=== PATIENT | male | born 1970 | race Caucasian/White ===

== ENCOUNTER 2018-06-27 10:20 | Observation (INO) ==
--- NOTE | 2018-06-27 10:45 | ED ---
HPI General Chief Complaint: Abdominal Pain Stated Complaint: kidney stones Time Seen by Provider: 06/27/18 10:40 Source: patient and EMS Mode of arrival: EMS Limitations: no limitations History of Present Illness HPI narrative: 47-year-old male patient with history of kidney stones presents to the ER today brought in by EMS because of pain in his left flank area that started at 6:45 AM. He states that he was getting nauseous but denies any vomiting, 9 out of 10 pain, and decided to call EMS. He denies any fevers, vomiting, or other symptoms. Modifying Factors: None Associated Signs & Symptoms: Abdominal pain and flank pain Risk Factors: None Related Data Home Medications Medication Instructions Recorded Confirmed bupropion HCl [Wellbutrin SR] 150 mg PO DAILY 06/27/18 06/27/18 Allergies Allergy/AdvReac Type Severity Reaction Status Date / Time Iodinated Contrast- Oral and Allergy Severe Itching/SOB Verified 06/27/18 10:26 IV Dye [Contrast] Review of Systems ROS: all other systems reviewed are negative [facility] Medical History Medical History Kidney stones (Acute) Surgical History Surgical History No history of previous surgery (Acute) Social History Social History Substance History: No History of Abuse Smoking Status: Never smoker How Often Do You Have a Drink Containing Alcohol: 2 to 4 times a month Recent Travel in [facility] within the Last 8 Weeks: No Recent Out of Country Travel within the Last 8 Weeks: No Immunization History Tetanus Immunization: Unsure Exam Narrative Exam Narrative: GENERAL: Well-developed middle-age male patient currently in mild distress. Awake and oriented x3. SKIN: Focused skin assessment warm/dry. HEAD: Atraumatic. Normocephalic. EYES: Pupils equal and round. No scleral icterus. No injection or drainage. ENT: No nasal bleeding or discharge. Mucous membranes pink and moist. NECK: Trachea midline. No JVD. CARDIOVASCULAR: Regular rate and rhythm. No murmur appreciated. RESPIRATORY: No accessory muscle use. Clear to auscultation. Breath sounds equal bilaterally. GASTROINTESTINAL: Abdomen soft, non-tender, nondistended. Hepatic and splenic margins not palpable. MUSCULOSKELETAL: No obvious deformities. No clubbing. No cyanosis. No edema. NEUROLOGICAL: Awake and alert. No obvious cranial nerve deficits. Motor grossly within normal limits. Normal speech. PSYCHIATRIC: Appropriate mood and affect; insight and judgment normal. Course Initial Documented Vital Signs Temperature 97.6 F 06/27/18 10:20 Pulse Rate 60 06/27/18 10:20 Respiratory Rate 14 06/27/18 10:20 Blood Pressure 140/84 06/27/18 10:20 Pulse Oximetry 100 06/27/18 10:20 Last Documented Vital Signs Temperature 97.6 F 06/27/18 10:20 Pulse Rate 65 06/27/18 11:40 Respiratory Rate 14 06/27/18 11:40 Blood Pressure 131/76 06/27/18 11:40 Pulse Oximetry 99 06/27/18 11:40 Medical Decision Making MDM Narrative Medical decision making narrative: Lab work shows blood in the urine. Patient was given symptomatic relief by EMS, and CAT scan is showing signs of left- sided hydronephrosis, with now obvious signs of a stone. Patient pees out the stone in the ER. However, his lipase is also 1900, and he may have some underlying acute pancreatitis as well interestingly. At this point, I have discussed further treatment with the patient and he agrees to stay, plan would be to admit the patient for further treatment of pancreatitis. Case is discussed with Dr. Shaw for admission. Medical Screen Exam Complete: Yes Emergency Medical Condition: Yes Differential Diagnosis Differential Diagnosis: Gastroenteritis versus renal colic versus pancreatitis versus other acute intra-abdominal processes Lab Data Lab results reviewed: Yes I reviewed the patient's lab results. Result diagrams: 06/27/18 11:20 06/27/18 11:20 Lab Results 06/27/18 06/27/18 06/27/18 Range/Units 11:20 11:20 11:25 CBC w Diff Auto diff final WBC 15.0 H (4.0-11.0) th/mm3 RBC 5.14 (4.50-5.90) mil/mm3 Hgb 16.1 (13.0-17.0) gm/dL Hct 46.1 (39.0-51.0) % MCV 89.8 (80.0-100.0) fL MCH 31.4 (27.0-34.0) pg MCHC 34.9 (32.0-36.0) % RDW 11.4 L (11.6-17.2) % Plt Count 199 (150-450) th/mm3 MPV 9.1 (7.0-11.0) fL Neut % (Auto) 85.2 H (16.0-70.0) % Lymph % (Auto) 6.2 L (9.0-44.0) % [place] % (Auto) 6.5 (0.0-8.0) % Eos % (Auto) 0.4 (0.0-4.0) % Baso % (Auto) 1.7 (0.0-2.0) % Neut # (Auto) 12.7 H (1.8-7.7) th/mm3 Lymph # (Auto) 0.9 L (1.0-4.8) th/mm3 [place] # (Auto) 1.0 H (0.0-0.9) th/mm3 Eos # (Auto) 0.1 (0.0-0.4) th/mm3 Baso # (Auto) 0.3 H (0.0-0.2) th/mm3 WBC Differential . Differential Comment . Sodium 137 (136-145) meq/L Potassium 4.9 (3.5-5.1) meq/L Chloride 103 (98-107) meq/L Carbon Dioxide 27.7 (21.0-32.0) meq/L Anion Gap 6 (5-15) meq/L BUN 11 (7-18) mg/dL Creatinine 1.20 (0.60-1.30) mg/dL Estimated GFR 65 L (>89) mL/min Random Glucose 138 H (74-106) mg/dL Calcium 8.7 (8.5-10.1) mg/dL Magnesium 2.1 (1.5-2.5) mg/dL Total Bilirubin 0.4 (0.2-1.0) mg/dL AST 27 (15-37) U/L ALT 46 (12-78) U/L Alkaline Phosphatase 67 (45-117) U/L Total Protein 7.6 (6.4-8.2) g/dL Albumin 3.8 (3.4-5.0) g/dL Lipase 1912 H (73-393) U/L Ur Collection Type Clean catch Urine Color Yellow (Yellw/Straw) Urine Clarity Slightly cloudy (Clear) Urine pH 7.0 (5.0-8.5) Ur Specific [place] 1.015 (1.002-1.035) Urine Protein Negative (Neg-Trace) mg/dL Urine Glucose (UA) Negative (Negative) mg/dL Urine Ketones Negative (Negative) mg/dL Urine Occult Blood Large H (Negative) Urine Nitrate Negative (Negative) Urine Bilirubin Negative (Negative) Urine Urobilinogen 0.2 (Less than 2) mg/dL Ur Leukocyte Esterase Negative (Negative) Urine RBC 4-15 H (0-3) /hpf Micro UA Comment Culture not ind Ur Microscopic Review Microscopic reviewed Urine Culture Comments Culture not ind Urine Collection Time 1125 hours Imaging Data Attestation: I personally reviewed and interpreted this imaging study as follows : Radiologist's impression: Abdomen/Pelvis CT 06/27/18 10:40 CONCLUSION: 1. Mild left-sided hydronephrosis and hydroureter without evidence of obstructing stone. 2. Small nonobstructing bilateral renal stones. 3. Otherwise normal exam. Discharge Plan Discharge Disposition Patient Disposition: 30 Still Patient Discharge Condition Condition: Stable Discharge Details Anticipated Discharge Date: 06/27/18 Diagnosis: Pancreatitis, Renal colic on left side Physicians Team ED Provider: Anali Mancia Rxs /Orders / Referrals /Forms Prescriptions: No Action bupropion HCl [Wellbutrin SR] 150 mg Tablet Sustained-Release 12 Hr 150 mg PO DAILY RF: 0 Discharge Interventions Interventions: Vital Signs Last Done: 06/27/18 11:40 Status ED Status: With Doctor
[2018-06-27 11:29] LABS: Baso # (Auto) 0.3 th/mm3 (0.0-0.2); Baso % (Auto) 1.7 % (0.0-2.0); Eos # (Auto) 0.1 th/mm3 (0.0-0.4); Eos % (Auto) 0.4 % (0.0-4.0); Hematocrit 46.1 % (39.0-51.0); Hemoglobin 16.1 gm/dL (13.0-17.0); Lymph # (Auto) 0.9 th/mm3 (1.0-4.8); Lymph % (Auto) 6.2 % (9.0-44.0); Mean Corpuscular HGB Conc 34.9 % (32.0-36.0); Mean Corpuscular Hemoglobin 31.4 pg (27.0-34.0); Mean Corpuscular Volume 89.8 fL (80.0-100.0); Mean Platelet Volume 9.1 fL (7.0-11.0); Mono % (Auto) 6.5 % (0.0-8.0); Neut # (Auto) 12.7 th/mm3 (1.8-7.7); Neut % (Auto) 85.2 % (16.0-70.0); Platelet Count 199 th/mm3 (150-450); Red Blood Count 5.14 mil/mm3 (4.50-5.90); Red Cell Distribution Width 11.4 % (11.6-17.2)
[2018-06-27 11:37] LABS: Chloride 103 meq/L (98-107); Potassium 4.9 meq/L (3.5-5.1); Sodium 137 meq/L (136-145)
[2018-06-27 11:40] LABS: Calcium 8.7 mg/dL (8.5-10.1)
[2018-06-27 11:41] LABS: Albumin 3.8 g/dL (3.4-5.0); Anion Gap 6 meq/L (5-15); Blood Urea Nitrogen 11 mg/dL (7-18); Carbon Dioxide 27.7 meq/L (21.0-32.0); Glucose,Random 138 mg/dL (74-106); Magnesium 2.1 mg/dL (1.5-2.5)
[2018-06-27 11:44] LABS: Alanine Aminotransferase 46 U/L (12-78); Aspartate Aminotransferase 27 U/L (15-37); Glomerular Filtration Rate 65 mL/min (>89)
[2018-06-27 11:45] LABS: Total Protein 7.6 g/dL (6.4-8.2)
[2018-06-27 11:46] LABS: Lipase 1912 U/L (73-393)
[2018-06-27 11:47] LABS: Alkaline Phosphatase 67 U/L (45-117)
[2018-06-27 11:49] LABS: Bilirubin,Urine Negative (Negative); Clarity,Urine Slightly Cloudy (Clear); Color,Urine Yellow (Yellw/Straw); Glucose,Urine (UA) Negative (Negative); Leukocyte Esterase,Urine Negative (Negative); Nitrite,Urine Negative (Negative); Specific Gravity,Urine 1.015 (1.002-1.035); Urobilinogen,Urine 0.2 mg/dL (Less than 2)
[2018-06-27 11:52] LABS: Collection Time,Urine 1125 hours
--- NOTE | 2018-06-27 12:16 | CT ---
EXAM DATE: 06/27/2018 12:04 PM EST AGE/SEX: 47 years / Male INDICATIONS: Left flank pain. CLINICAL DATA: This is the patient's initial encounter. Patient reports that signs and symptoms have been present for 1 day and indicates a pain score of 0/10. MEDICAL/SURGICAL HISTORY: Renal calculi. None. RADIATION DOSE: 7.76 CTDI (mGy) COMPARISON: No prior exams available for comparison. TECHNIQUE: Multiple contiguous axial images were obtained through the abdomen. Images were obtained using multiple row detector helical technique. Using automated exposure control and adjustment of the mA and/or kV according to patient size, radiation dose was kept as low as reasonably achievable to o btain optimal diagnostic quality images. DICOM format image data is available electronically for rev iew and comparison. FINDINGS: Lower Lungs: The visualized lower lungs are clear. Liver: The liver has a homogeneous density without space-occupying lesion. There is no dilation of th e biliary tree. Spleen: Homogeneous density without enlargement. Pancreas: Unremarkable without mass or calcification. Kidneys: The left renal collecting system including proximal ureter are mildly dilated. There is no evidence of obstructing stone. A tiny nonobstructing calculus is identified in the lower pole measuri ng 1 to 2 mm. The right kidney contains a 3 to 4 mm nonobstructing stone in the upper pole. Collecting system is no rmal without evidence of hydronephrosis. There are no suspicious renal lesions. Adrenal Glands: Unremarkable. Aorta: The aorta and proximal iliac vessels are grossly unremarkable without aneurysmal dilation. Bowel/Mesentery: The bowel loops are grossly unremarkable. The cecum and sigmoid colon have a normal configuration. Abdominal Wall: Intact. Retroperitoneum: No evidence of adenopathy in the retrocrural, para-aortic, or deep pelvic regions. Bladder: Contours are smooth. Reproductive Organs: No abnormal masses or calcifications seen. Inguinal: The inguinal region is unremarkable without evidence of adenopathy. Bony Structures: Unremarkable. CONCLUSION: 1. Mild left-sided hydronephrosis and hydroureter without evidence of obstructing stone. 2. Small nonobstructing bilateral renal stones. 3. Otherwise normal exam. Electronically signed by: Tyrell Cerda MD 06/27/2018 12:15 PM EST
[2018-06-27] MEDS ORDERED: Sod Chloride 0.9% Inj 1,000 ML IV.SIG SCH (13:00)
--- NOTE | 2018-06-27 14:23 | P.HPIM ---
History of Present Illness Primary Care Physician: Jeramy Avendaño MD [facility] History of Present Illness: This patient is a 47-year-old male with a history of kidney stones. The patient also has a history of anxiety and takes Wellbutrin. The patient came in to emerge department with complaints of left-sided abdominal pain which was radiating to his back. Over the past few days the patient has had some visitors from the [place] and they went out and drink a couple bottles of wine yesterday. The patient that his symptoms started last night and continued throughout the night. The patient also some nausea however denies any vomiting. This morning the patient believed that he had another kidney stone and came into the emergency department because the stone did not pass overnight. In the ER a CT scan of the abdomen pelvis was done which showed bilateral small kidney stones as well as mild left-sided hydronephrosis. He ended up passing a kidney stone in the ER. Labs showed an elevated lipase of 1900. Given the patient's abdominal pain with radiation to his back he was started on IV fluids and I was called to evaluate the patient. Past medical history anxiety Past surgical history none Social history the patient denies any history of tobacco use, no drug use, he admits to drinking approximately 1 bottle of wine each night between him and his . Occasionally he will drink a few bottles when going out with friends. Family history noncontributory. Inpatient Certification: I certify that the inpatient services were ordered in accordance with Medicare regulations governing the order. This includes certification that hospital inpatient services are reasonable and necessary and in the case of services not specified as inpatient-only under 42 CFR 419.22(n), that they are appropriately provided as inpatient services in accordance to with the 2-midnight benchmark under 43 CFR 412.3(e) Review of Systems All other systems reviewed negative except as stated in HPI PMFSH - History History Provided By: Patient - Medical History Medical History: Medical History (Last Reviewed 06/27/18 @ 10:44 by Anali Mancia MD) Kidney stones - Surgical History Surgical History: Surgical History (Last Reviewed 06/27/18 @ 10:44 by Anali Mancia MD) No history of previous surgery - Tobacco History Smoking Status: Never smoker - Alcohol History How Often Do You Have a Drink Containing Alcohol: 2 to 4 times a month - Substance Use History Substance History: No History of Abuse - Travel History Recent Travel in the [place] Within the Last 8 Weeks: No Recent Travel Out of the Country Within the Last 8 Weeks: No - Immunization History Tetanus Immunization: Unsure Medications and Allergies Active Medications: Active Medications Sodium Chloride (Ns Inj) 1,000 mls @ 175 mls/hr IV.CONT .Q5H43M ALISE Sodium Chloride (Ns Flush) 2 ml IV.FLUSH PRN PRN PRN Reason: FLUSH AFTER USING IV ACCESS Allergies Allergy/AdvReac Type Severity Reaction Status Date / Time Iodinated Contrast- Oral and Allergy Severe Itching/SOB Verified 06/27/18 10:26 IV Dye [Contrast] Home Medications Medication Instructions Recorded Confirmed Type bupropion HCl [Wellbutrin SR] 150 mg PO DAILY 06/27/18 06/27/18 History Exam Vital signs: Vital Signs 06/27/18 10:20 06/27/18 11:40 Temperature 97.6 F Pulse Rate 60 65 Respiratory Rate 14 14 Blood Pressure 140/84 131/76 Pulse Oximetry 100 99 Intake & Output 06/26/18 06/27/18 06/27/18 18:59 06:59 18:59 Weight 83.915 kg Narrative: General patient complains of abdominal pain that radiates to the left side of his back. HEENT extraocular movements are intact, clear oropharyngeal mucosa, no JVD Cardiovascular S1-S2 audible, RRR, no murmurs rubs or gallops Respiratory clear to auscultation bilaterally Abdomen soft, nontender, nondistended, normal bowel sounds Extremities no edema 2+ distal pulses in bilateral upper and lower extremities Neuro cranial nerves II through XII intact Results - Labs CBC & Chem 7: 06/27/18 11:20 06/27/18 11:20 Labs: Short CBC 06/27/18 Range/Units 11:20 WBC 15.0 H (4.0-11.0) th/mm3 Hgb 16.1 (13.0-17.0) gm/dL Hct 46.1 (39.0-51.0) % Plt Count 199 (150-450) th/mm3 BMP 06/27/18 11:20 Sodium 137 Potassium 4.9 Chloride 103 Carbon Dioxide 27.7 BUN 11 Creatinine 1.20 Calcium 8.7 Liver Function 06/27/18 Range/Units 11:20 Total Bilirubin 0.4 (0.2-1.0) mg/dL AST 27 (15-37) U/L ALT 46 (12-78) U/L Alkaline Phosphatase 67 (45-117) U/L Albumin 3.8 (3.4-5.0) g/dL Urine 06/27/18 Range/Units 11:25 Urine Color Yellow (Yellw/Straw) Urine Clarity Slightly cloudy (Clear) Urine pH 7.0 (5.0-8.5) Ur Specific [place] 1.015 (1.002-1.035) Urine Protein Negative (Neg-Trace) mg/dL Urine Glucose (UA) Negative (Negative) mg/dL - Imaging Impressions Abdomen/Pelvis CT 06/27/18 10:40 CONCLUSION: 1. Mild left-sided hydronephrosis and hydroureter without evidence of obstructing stone. 2. Small nonobstructing bilateral renal stones. 3. Otherwise normal exam. Caprini VTE Risk Assessment Caprini VTE Risk Assessment: No/Low Risk (score <= 1) Caprini Risk Assessment Model: Point Value = 1 Point Value = 2 Point Value = 3 Point Value = 5 Age 41-60 Minor surgery BMI > 25 kg/m2 Swollen legs Varicose veins or History of unexplained or recurrent spontaneous Oral contraceptives or hormone replacement Sepsis (< 1 month) Serious lung disease, including pneumonia (< 1 month) Abnormal pulmonary function Acute myocardial infarction Congestive heart failure (< 1 month) History of inflammatory bowel disease Medical patient at bed rest Age 61-74 Arthroscopic surgery Major open surgery (> 45 min) Laparoscopic surgery (> 45 min) Malignancy Confined to bed (> 72 hours) Immobilizing plaster cast Central venous access Age >= 75 History of VTE Family history of VTE Factor V Leiden Prothrombin [id number] Lupus anticoagulant Anticardiolipin antibodies Elevated serum homocysteine Heparin-induced thrombocytopenia Other congenital or acquired thrombophilia Stroke (< 1 month) Elective arthroplasty Hip, pelvis, or leg fracture Acute spinal cord injury (< 1 month) Prophylaxis Regimen: Total Risk Factor Score Risk Level Prophylaxis Regimen 0-1 Low Early ambulation 2 Moderate Order ONE of the following: *Sequential Compression Device (SCD) *Heparin 5000 units SQ BID 3-4 Higher Order ONE of the following medications: *Heparin 5000 units SQ TID *Enoxaparin/Lovenox 40 mg SQ daily (WT < 150 kg, CrCl > 30 mL/min) *Enoxaparin/Lovenox 30 mg SQ daily (WT < 150 kg, CrCl > 10-29 mL/min) *Enoxaparin/Lovenox 30 mg SQ BID (WT < 150 kg, CrCl > 30 mL/min) AND/OR *Sequential Compression Device (SCD) 5 or more Highest Order ONE of the following medications: *Heparin 5000 units SQ TID (Preferred with Epidurals) *Enoxaparin/Lovenox 40 mg SQ daily (WT < 150 kg, CrCl > 30 mL/min) *Enoxaparin/Lovenox 30 mg SQ daily (WT < 150 kg, CrCl > 10-29 mL/min) *Enoxaparin/Lovenox 30 mg SQ BID (WT < 150 kg, CrCl > 30 mL/min) AND *Sequential Compression Device (SCD) Assessment and Plan - Plan This patient is a 47-year-old male with a history of kidney stones. The patient also has a history of anxiety and takes Wellbutrin. The patient came in to emerge department with complaints of left-sided abdominal pain which was radiating to his back. Over the past few days the patient has had some visitors from the [place] and they went out and drink a couple bottles of wine yesterday. The patient that his symptoms started last night and continued throughout the night. The patient also some nausea however denies any vomiting. This morning the patient believed that he had another kidney stone and came into the emergency department because the stone did not pass overnight. In the ER a CT scan of the abdomen pelvis was done which showed bilateral small kidney stones as well as mild left-sided hydronephrosis. He ended up passing a kidney stone in the ER. 1. Acute pancreatitis The patient had abdominal pain with radiation to the left side of his back. Lipase is elevated at 1900 CT scan of the abdomen pelvis shows kidney stones and mild left-sided hydronephrosis. No significant findings noted about the pancreas on the CT scan however this was a noncontrast CT as the patient has a contrast allergy. Plan will be to keep the patient n.p.o. for today. He will be started on aggressive IV fluid hydration. He will be monitored in-house and will follow up with the patient in the morning. Once the patient's abdominal pain improves he will be started on a clear liquid diet and then advance as tolerated. 2. Kidney stones Patient has a history of kidney stones. He passed a kidney stone while in the emergency department. CT scan of the abdomen pelvis shows mild left-sided hydronephrosis without evidence of an obstructing stone. Patient will be continued on IV fluids. Given the small size of the kidney stones I do not believe they need urological intervention at this point. Patient was advised to avoid alcohol and stay hydrated to avoid having recurrent kidney stones. 3. Alcohol use Patient was advised to avoid alcohol as he has recurrent kidney stones and presented with acute pancreatitis.
[2018-06-27] MEDS: Sod Chloride 0.9% Inj 1,000 ML IV.CONT SCH ×2 (15:23→23:17)
[2018-06-28] MEDS: Sod Chloride 0.9% Inj 1,000 ML IV.CONT SCH ×2 (05:20→08:57)
[2018-06-28 06:51] LABS: Potassium 4.3 meq/L (3.5-5.1)
[2018-06-28 06:54] LABS: Carbon Dioxide 27.5 meq/L (21.0-32.0)
[2018-06-28 08:03] VITALS: BP 127/82; PULSE 62; RESP 16; TEMP 97.1; O2SAT 98
[2018-06-28 10:50] LABS: Chol/HDL Ratio 3.14 Ratio; HDL Cholesterol 62.9 mg/dL (40.0-60.0)
--- NOTE | 2018-06-28 11:27 | P.PN ---
Subjective Interval history: Nursing denies any acute changes overnight. Denies having to push any IV pain medications this morning. Patient says that he started feeling much better since he passed his kidney stone in the ER yesterday even before coming to the floor. Denies having abdominal pain today. Says he drinks about 1 glass of wine nightly. Physical Exam Vital signs: Vital Signs 06/27/18 11:40 06/27/18 16:00 06/27/18 20:25 Temperature 97.1 F L 97.5 F L Pulse Rate 65 64 59 L Respiratory Rate 14 20 Blood Pressure 131/76 127/76 125/54 L Pulse Oximetry 99 99 98 06/28/18 00:00 06/28/18 08:00 Temperature 97.4 F L 97.1 F L Pulse Rate 60 62 Respiratory Rate 18 16 Blood Pressure 124/63 127/82 Pulse Oximetry 97 98 Intake & Output 06/27/18 06/28/18 06/28/18 18:59 06:59 18:59 Intake Total 1727 / 1727 1999 1000 / 1000 Balance 1727 / 1727 1999 1000 / 1000 Weight 81.5 kg 83.7 kg Intake: IV 1727 / 1727 1999 1000 / 1000 NS Inj 1,000 ML @ 175 mls/hr IV 627 / 627 1999 1000 / 1000 .CONT .Q5H43M ALISE Rx#: [id number] NS Inj 1,000 ML @ 1000 mls/hr 1100 / 1100 IV.SIG BOLUS ALISE Rx#:[id number] Oral 0 / 0 Other: # Voids 1 3 Date of Last Bowel Movement 06/27/18 06/27/18 Weight On Admission 81.5 kg Narrative: Standing up with us out of bed, talking on phone Abdomen soft, nontender, nondistended Clear lungs bilaterally, unlabored breathing No acute distress Results - Labs CBC & Chem 7: 06/27/18 11:20 06/28/18 06:08 Laboratory Results - last 24 hr 06/27/18 06/27/18 06/27/18 11:20 11:20 11:25 CBC w Diff Auto diff final WBC 15.0 H RBC 5.14 Hgb 16.1 Hct 46.1 MCV 89.8 MCH 31.4 MCHC 34.9 RDW 11.4 L Plt Count 199 MPV 9.1 Neut % (Auto) 85.2 H Lymph % (Auto) 6.2 L [place] % (Auto) 6.5 Eos % (Auto) 0.4 Baso % (Auto) 1.7 Neut # (Auto) 12.7 H Lymph # (Auto) 0.9 L [place] # (Auto) 1.0 H Eos # (Auto) 0.1 Baso # (Auto) 0.3 H WBC Differential . Differential Comment . Sodium 137 Potassium 4.9 Chloride 103 Carbon Dioxide 27.7 Anion Gap 6 BUN 11 Creatinine 1.20 Estimated GFR 65 L Random Glucose 138 H Calcium 8.7 Magnesium 2.1 Total Bilirubin 0.4 AST 27 ALT 46 Alkaline Phosphatase 67 Total Protein 7.6 Albumin 3.8 Triglycerides Cholesterol LDL Cholesterol, Calc HDL Cholesterol Cholesterol/HDL Ratio Lipase 1912 H Ur Collection Type Clean catch Urine Color Yellow Urine Clarity Slightly cloudy Urine pH 7.0 Ur Specific [place] 1.015 Urine Protein Negative Urine Glucose (UA) Negative Urine Ketones Negative Urine Occult Blood Large H Urine Nitrate Negative Urine Bilirubin Negative Urine Urobilinogen 0.2 Ur Leukocyte Esterase Negative Urine RBC 4-15 H Micro UA Comment Culture not ind Ur Microscopic Review Microscopic reviewed Urine Culture Comments Culture not ind Urine Collection Time 1125 06/28/18 06:08 CBC w Diff WBC RBC Hgb Hct MCV MCH MCHC RDW Plt Count MPV Neut % (Auto) Lymph % (Auto) [place] % (Auto) Eos % (Auto) Baso % (Auto) Neut # (Auto) Lymph # (Auto) [place] # (Auto) Eos # (Auto) Baso # (Auto) WBC Differential Differential Comment Sodium 141 Potassium 4.3 Chloride 108 H Carbon Dioxide 27.5 Anion Gap 6 BUN 9 Creatinine 0.95 Estimated GFR 85 L Random Glucose 108 H Calcium 8.0 L Magnesium Total Bilirubin AST ALT Alkaline Phosphatase Total Protein Albumin Triglycerides 130 Cholesterol 198 LDL Cholesterol, Calc 109 H HDL Cholesterol 62.9 H Cholesterol/HDL Ratio 3.14 Lipase Ur Collection Type Urine Color Urine Clarity Urine pH Ur Specific [place] Urine Protein Urine Glucose (UA) Urine Ketones Urine Occult Blood Urine Nitrate Urine Bilirubin Urine Urobilinogen Ur Leukocyte Esterase Urine RBC Micro UA Comment Ur Microscopic Review Urine Culture Comments Urine Collection Time - Imaging Impressions Abdomen/Pelvis CT 06/27/18 10:40 CONCLUSION: 1. Mild left-sided hydronephrosis and hydroureter without evidence of obstructing stone. 2. Small nonobstructing bilateral renal stones. 3. Otherwise normal exam. Assessment and Plan - Plan Abdominal pain Possibly secondary to mild hydronephrosis and/or pancreatitis. Unlikely patient had a true episode of pancreatitis as he is essentially asymptomatic from a GI standpoint this morning and has no tenderness whatsoever on palpation. Lipase could have been elevated to a secondary organ otherwise. Advised the patient to proceed with a soft diet for dinner tonight and may otherwise advance to regular diet texture by tomorrow morning if he has no further comp occasions. Patient has met maximum benefit from hospitalization and is medically stable for discharge.
== END 2018-06-28 12:21 | disposition home or self-care (01) ==
LOC: PHEFT 10:20 → PHEDA 13:01 → INTOOBSV 13:01 → PH3 14:42
PROVIDERS: ADMIT Hospitalist; ATTEND Hospitalist
DX: F41.9 Anxiety disorder, unspecified; N13.2 Hydronephrosis with renal and ureteral calculous obstruction; K85.90 Acute pancreatitis without necrosis or infection, unspecified; Z79.899 Other long term (current) drug therapy